=== PATIENT | female | born 1980 | race Caucasian/White ===

== ENCOUNTER 2019-12-03 13:48 | Observation (INO) ==
[2019-12-03] MEDS ORDERED: ONDANSETRON 4 MG/2 ML VIAL IV PRN (13:50)
[2019-12-03] MEDS ORDERED: ACETAMINOPHEN 325 MG TABLET PO PRN (13:50)
[2019-12-03] MEDS ORDERED: DOCUSATE SODIUM 100 MG CAPSULE PO PRN (13:50)
[2019-12-03] MEDS ORDERED: VANCOMYCIN INJ 1,000 MG in SODIUM CHLORIDE 0.9% 250 ML IV SCH (14:00)
[2019-12-03] MEDS: VANCOMYCIN INJ 1,000 MG in SODIUM CHLORIDE 0.9% 250 ML IV SCH (15:38)
[2019-12-03] MEDS: SODIUM CHLORIDE 0.9% 1,000 ML IV SCH (15:39)
[2019-12-03 15:41] LABS: Basophils # 0.1 10*3/uL (0.0-0.2); Basophils % 0.6 % (0.0-0.8); Eosinophils # 0.2 10*3/uL (0.0-0.87); Eosinophils % 2.4 % (0.00-10.9); Hematocrit 38.3 VOL% (35.7-47.0); Hemoglobin 13.1 GM/DL (12.0-16.0); Immature Granulocytes % 0.2 %; Immature Granulocytes Absolute 0.02 #; Lymphocytes # 2.1 10*3/uL (1.4-4.0); Lymphocytes % 24.1 % (21.3-54.2); Mean Corpuscular HGB Conc 34.2 GM/DL (32-36); Mean Corpuscular Volume 94.3 FL (87-102); Mean Platelet Volume 10.5 FL (9.6-12.0); Neutrophils % 66.7 % (38.7-73.9); Platelet Count 292 T/CUMM (130-400); Red Blood Count 4.06 MC/CUMM (3.8-5.5); Red Cell Distribution Width 13.1 % (9.3-17.3); White Blood Count 8.9 T/CUMM (4-12)
[2019-12-03] MEDS ORDERED: traMADol 50 MG TABLET PO PRN (15:45)
[2019-12-03 16:07] LABS: Albumin 3.6 G/DL (3.4-5.0); Bilirubin,Total 0.9 MG/DL (0.2-1.0); Calcium 9.1 MG/DL (8.5-10.1); Osmolality,Calculated 276.5 MOS/KG (273-304); Total Protein 7.3 G/DL (6.4-8.3)
[2019-12-03] MEDS: SILVER SULFADIAZINE 1% CREAM 25 GM TUBE TOP SCH (17:51)
[2019-12-03] MEDS: TOPIRAMATE 25 MG TABLET PO SCH (21:19)
[2019-12-03] MEDS: GABAPENTIN 100 MG CAPSULE PO PRN (21:20)
[2019-12-03] MEDS: LORazepam 1 MG TABLET PO PRN (21:20)
[2019-12-04] MEDS: VANCOMYCIN INJ 1,000 MG in SODIUM CHLORIDE 0.9% 250 ML IV SCH ×2 (04:02→14:33)
[2019-12-04] MEDS: SILVER SULFADIAZINE 1% CREAM 25 GM TUBE TOP SCH (08:18)
[2019-12-04] MEDS: PANTOPRAZOLE 40 MG TABLET PO SCH (08:18)
[2019-12-04] MEDS: TOPIRAMATE 25 MG TABLET PO SCH ×2 (08:18→21:24)
[2019-12-04] MEDS: SODIUM CHLORIDE 0.9% 1,000 ML IV SCH (09:43)
[2019-12-04] MEDS: GABAPENTIN 100 MG CAPSULE PO PRN ×2 (14:32→21:24)
[2019-12-04] MEDS: LORazepam 1 MG TABLET PO PRN (21:24)
[2019-12-05] MEDS: VANCOMYCIN INJ 1,000 MG in SODIUM CHLORIDE 0.9% 250 ML IV SCH ×2 (03:52→12:48)
[2019-12-05] MEDS: SODIUM CHLORIDE 0.9% 1,000 ML IV SCH (05:00)
[2019-12-05] MEDS: TOPIRAMATE 25 MG TABLET PO SCH (09:31)
[2019-12-05] MEDS: PANTOPRAZOLE 40 MG TABLET PO SCH (09:31)
[2019-12-05] MEDS: SILVER SULFADIAZINE 1% CREAM 25 GM TUBE TOP SCH (09:32)
[2019-12-05 17:09] VITALS: BP 102/58
== END 2019-12-05 18:00 | disposition home or self-care (01) ==
LOC: N.5E
PROVIDERS: ADMIT Family Medicine; ATTEND Family Medicine